=== PATIENT | male | born 1975 | race African-American/Black ===

== ENCOUNTER 2020-11-22 21:35 | Emergency (ER) | payer SELFPAY ==
[2020-11-22 22:12] LABS: BASOPHIL 0.6 % (0-2); HGB 15.5 g/dl (13.2-18.0); LYMPHOCYTE 25.2 % (15-48); MCH 32.2 pg (25.0-31.0); MCHC 35.2 g/dL (32.0-36.0); MCV 91.3 fL (78.0-100.0); MONOCYTE 4.8 % (0-12); MPV 10.4 fL (6.0-9.5); NRBC 0; PLT 178 K/uL (150-400); RBC 4.82 M/uL (4.70-6.00); RDW 11.7 % (11.5-14.0)
[2020-11-22 22:17] LABS: WBC 4.8 K/uL (4.0-10.5)
[2020-11-22 22:18] LABS: ALBUMIN 3.6 g/dL (3.4-5.0); BILIRUBIN - TOTAL 0.7 mg/dL (0.2-1.0); BUN/CREAT RATIO (CALC) 13.5 RATIO; CREATININE 0.89 mg/dL (0.67-1.17); GLOBULIN (CALCULATION) 3.4 g/dL; POTASSIUM 4.3 mmol/L (3.5-5.1)
[2020-11-22 22:25] LABS: LACTIC ACID 1.5 mmol/L (0.4-1.9)
[2020-11-22] MEDS ORDERED: CLEOCIN300 MG PO (23:19)
== END 2020-11-22 23:32 | disposition home or self-care (01) ==
LOC: FER 21:35
PROVIDERS: Emergency Medicine
DX: H60.02 Abscess of left external ear (principal); R00.0 Tachycardia, unspecified; F17.210 Nicotine dependence, cigarettes, uncomplicated
CPT/HCPCS: 36415; 80053; 83605; 84145; 84484; 85025; 87040; 87070; 87205; J0780; J1885; J7030